=== PATIENT | male | born 1990 | race Two or more races ===

== ENCOUNTER 2024-01-08 11:45 | Emergency (ER) | payer SELFPAY ==
[~2024-01-08] VITALS: Ht 175.3 cm; Wt 82.0 kg
[2024-01-08] MEDS: IPRATROPIUM BROM 0.5 MG/2.5ML INH SOL NEB ONE (13:44)
[2024-01-08] MEDS: ALBUTEROL SULF 2.5 MG/0.5ML(0.5%) NEB SOLN NEB ONE (13:45)
[2024-01-08 14:01] VITALS: BP 132/67; PULSE 77; RESP 19; TEMP 98.8; O2SAT 100
[2024-01-08] MEDS ORDERED: ALBU108A5 IN (14:50)
== END 2024-01-08 14:56 | disposition home or self-care (01) ==
LOC: ER 11:45 → EDBD 11:45 → ER 14:55
DX: J20.9 Acute bronchitis, unspecified (principal); F41.9 Anxiety disorder, unspecified; F17.210 Nicotine dependence, cigarettes, uncomplicated; Z79.899 Other long term (current) drug therapy
CPT/HCPCS: 71045; 94640; 99283; J7644